=== PATIENT | male | born 1995 | race Caucasian/White ===

== ENCOUNTER 2021-04-22 09:00 | Emergency (ER) | payer OTHER ==
[2021-04-22] MEDS ORDERED: diphenhydrAMINE 50MG/ML VIAL (J1200) IV ONE (10:50)
[2021-04-22] MEDS ORDERED: METOCLOPRAMIDE INJ 10MG/2ML VIAL (J2765 PER 1) IV ONE (10:50)
[2021-04-22] MEDS ORDERED: ACETAMINOPHEN 500 MG TAB PO ONE (10:50)
[2021-04-22] MEDS ORDERED: NS 1,000 ML IV ONE (10:50)
[2021-04-22] MEDS ORDERED: KETOROLAC 30 MG/ML 1ML VIAL IV ONE (12:30)
[2021-04-22] MEDS ORDERED: REGL10TA6 PO (13:22)
[2021-04-22] MEDS ORDERED: KETO10TAB PO (13:23)
[2021-04-22 13:31] VITALS: BP 117/57
== END 2021-04-22 13:32 | disposition home or self-care (01) ==
LOC: M ED 09:00
DX: R51.9 Headache, unspecified (principal)
CPT/HCPCS: 70450; 96361; 96374; 96375; 99284; J1200; J1885; J2765